=== PATIENT | male | born 1970 | race Caucasian/White ===

== ENCOUNTER 2021-09-07 15:35 | Inpatient (IN) | payer SELFPAY ==
[~2021-09-07] VITALS: Ht 180.3 cm; Wt 106.2 kg
[2021-09-07 16:36] LABS: COLLECTION METHOD CLEAN CATCH
[2021-09-07 16:38] LABS: BASO # 0.1 K/mm3 (0.0-0.2); BASO % 0.5 % (0.0-2.0); EOS % 0.3 % (0.0-4.0); GRAN # 7.5 K/mm3 (1.4-6.5); GRAN % 75.7 % (42.2-75.2); HEMATOCRIT 35.8 % (42.0-52.0); HEMOGLOBIN 11.8 g/dl (13.5-18.0); INR 1.6 (0.8-3.0); LYMPH % 9.6 % (20.0-51.0); MEAN CELL VOLUME 107 fl (80.0-100.0); MEAN CORPUSCULAR HEMOGLOBIN 35 pg (27-31); MEAN CORPUSCULAR HGB CONC 33 g/dl (33.0-37.0); MEAN PLATELET VOLUME 11.1 fl (7.4-10.4); MONO # 1.3 K/mm3 (0.1-0.6); MONO % 13.4 % (1.7-9.3); PLATELET COUNT 181 K/mm3 (130-400); RED BLOOD COUNT 3.36 M/mm3 (4.20-5.60); REDCELL DISTRIBUTION WIDTH-CV 16.3 % (11.5-14.5)
[2021-09-07 16:43] LABS: MUCOUS Present (NOT PRESENT); PH 5 (5-8); SQUAMOUS EPITHELIAL 0-2 /hpf (0-10); URINE APPEARANCE Hazy (CLEAR/HAZY); URINE BACTERIA None Seen /hpf (NONE SEEN); URINE BILIRUBIN Positive (NEGATIVE); URINE BLOOD Negative (NEGATIVE); URINE COLOR Amber (YELLOW); URINE GLUCOSE Negative (NEGATIVE); URINE KETONE Trace (NEGATIVE); URINE LEUKOCYTE ESTERASE Negative (NEGATIVE); URINE NITRATE Negative (NEGATIVE); URINE PROTEIN(semi-quant) 1+ (NEGATIVE); URINE UROBILINOGEN >=4.0 (NEGATIVE)
[2021-09-07 16:52] LABS: ALANINE AMINOTRANSFERASE 31 U/L (0-55); ALBUMIN 2.6 gm/dL (3.5-5.0); ALKALINE PHOSPHATASE 204 U/L (40-150); AST,SGOT 110 U/L (5-34); BILIRUBIN,TOTAL 5.7 mg/dL (0.2-1.2); BLOOD UREA NITROGEN 7 mg/dL (8-26); CALCIUM 8.4 mg/dL (8.4-10.2); CARBON DIOXIDE 19 mmol/L (22-29); CHLORIDE 103 mmol/L (98-107); CREATININE, serum 0.69 mg/dL (0.72-1.25); GLUCOSE 122 mg/dL (70-99); POTASSIUM 3.9 mmol/L (3.5-4.5); SODIUM 136 mmol/L (136-145); TOTAL PROTEIN 7.6 gm/dL (6.2-8.1)
[2021-09-07 16:54] LABS: ALCOHOL(ethanol),MEDICAL < 10 mg/dL (0-10); ANION GAP 14 mmol/L (7-16)
[2021-09-07 21:41] VITALS: BP 136/84; PULSE 99; TEMP 97.7
[2021-09-08] VITALS (13 sets, daily range): BP systolic 123–154; BP diastolic 67–91; PULSE 28–104; TEMP 97.8–99.4
[2021-09-08 00:13] LABS: LIPASE 15 U/L (8-78)
[2021-09-08 06:12] LABS: BASO # 0.1 K/mm3 (0.0-0.2); BASO % 0.7 % (0.0-2.0); EOS # 0.1 K/mm3 (0.0-0.7); EOS % 0.8 % (0.0-4.0); GRAN # 5.8 K/mm3 (1.4-6.5); GRAN % 75.7 % (42.2-75.2); HEMOGLOBIN 10.5 g/dl (13.5-18.0); LYMPH # 0.7 K/mm3 (1.2-3.4); LYMPH % 9.1 % (20.0-51.0); MEAN CELL VOLUME 109 fl (80.0-100.0); MEAN CORPUSCULAR HEMOGLOBIN 36 pg (27-31); MEAN CORPUSCULAR HGB CONC 33 g/dl (33.0-37.0); MEAN PLATELET VOLUME 11.1 fl (7.4-10.4); MONO % 13.3 % (1.7-9.3); PLATELET COUNT 148 K/mm3 (130-400); REDCELL DISTRIBUTION WIDTH-CV 16.2 % (11.5-14.5)
[2021-09-08 06:15] LABS: HEMATOCRIT 31.7 % (42.0-52.0)
[2021-09-08 06:30] LABS: INR 1.7 (0.8-3.0); PROTHROMBIN TIME 18.9 SECONDS (9.7-12.8)
[2021-09-08 06:31] LABS: ALBUMIN 2.3 gm/dL (3.5-5.0); BILIRUBIN,TOTAL 4.5 mg/dL (0.2-1.2); CALCIUM 7.9 mg/dL (8.4-10.2); CREATININE, serum 0.6 mg/dL (0.72-1.25); MAGNESIUM 1.9 mg/dL (1.6-2.6); POTASSIUM 3.9 mmol/L (3.5-4.5); TOTAL PROTEIN 6.7 gm/dL (6.2-8.1)
[2021-09-08 10:37] LABS: PERITONEAL -POLYMORPHONUCLEAR 7.1 % (0-25)
--- NOTE | 2021-09-08 10:42 | NUR ---
insulation worker met with patient to discuss discharge plan. Patient is currently out of the room for a procedure. SW met with patient's Madyson ([phone]). Patient is independent with his ADL's and does not utilize any DME to assist with mobility but does have access to both a cane and a walker Patient has no home oxygen needs. Madyson states that the patient needs a CPAP machine but they cannot afford one. Madyson states that the patient does not have a PCP "because we make to much for the free clinic". Patient utilizes [facility] for medications. She is not sure if the patient has a DPOA-HC established in writing. Education provided. Madyson states that she would likethe patient to get on disability. She states that he is unable to work due to suffering from "social anxiety disorder". Directed her to reach out to the [facility] to assist with this. Informed her that i would reach out to our financial counselor to assit in filling out the FAA and to see if the patient would qualify for [facility]. Daniel contacted and states that she will meet with them today. Discharge plan: Home with spouse
--- NOTE | 2021-09-08 13:39 | NUR ---
Initial visit; Patient sleeping. Presentation Designer spoke with his letting her know of the availability of spiritual care should patient decide later that he would like to have prayer.
[2021-09-09] VITALS (10 sets, daily range): BP systolic 124–138; BP diastolic 76–85; PULSE 93–103; TEMP 98–99.2
--- NOTE | 2021-09-09 00:13 | NUR ---
PT IS VERY SLEEPY, WILL WAKE BRIEFLY BUT GOES BACK TO SLEEP. SCORE 3-4 CIWA- NO ATIVAN GIVEN. AT BEDSIDE AND APPOVED TO STAY OVERNIGHT TO HELP W PT SAFTY. BED ALARM. POC DISCUSSED W .
[2021-09-09 05:17] LABS: BASO # 0.1 K/mm3 (0.0-0.2); BASO % 0.9 % (0.0-2.0); EOS # 0.1 K/mm3 (0.0-0.7); EOS % 0.9 % (0.0-4.0); GRAN # 4.7 K/mm3 (1.4-6.5); HEMOGLOBIN 11.2 g/dl (13.5-18.0); LYMPH # 1.2 K/mm3 (1.2-3.4); LYMPH % 17.4 % (20.0-51.0); MEAN CELL VOLUME 107 fl (80.0-100.0); MEAN CORPUSCULAR HEMOGLOBIN 35 pg (27-31); MEAN CORPUSCULAR HGB CONC 33 g/dl (33.0-37.0); MEAN PLATELET VOLUME 10.7 fl (7.4-10.4); MONO # 0.9 K/mm3 (0.1-0.6); MONO % 13.4 % (1.7-9.3); PLATELET COUNT 179 K/mm3 (130-400); REDCELL DISTRIBUTION WIDTH-CV 16.4 % (11.5-14.5)
[2021-09-09 05:26] LABS: HEMATOCRIT 34.3 % (42.0-52.0)
[2021-09-09 05:32] LABS: INR 1.6 (0.8-3.0); PROTHROMBIN TIME 17.7 SECONDS (9.7-12.8)
[2021-09-09 05:38] LABS: ALBUMIN 2.8 gm/dL (3.5-5.0); BILIRUBIN,TOTAL 4.4 mg/dL (0.2-1.2); CALCIUM 8.4 mg/dL (8.4-10.2); CREATININE, serum 0.69 mg/dL (0.72-1.25); POTASSIUM 3.5 mmol/L (3.5-4.5)
--- NOTE | 2021-09-09 12:11 | NUR ---
PATIENT AND FAMILY REFUSING FOLATE AND B12 LAB DRAWS DUE TO COST, PROVIDER NOTIFIED. AGREEABLE TO AMMONIA LEVEL BEING DRAWN.
--- NOTE | 2021-09-09 15:07 | NUR ---
Collaborated with the PA who does not feel as if the patient will need long-term antibiotics. SW also notified of the patient and his spouse being interested in where to either rent/purchase a shower chair. Financial counselor arrives to the floor to meet with the patient and his spouse.
--- NOTE | 2021-09-09 16:42 | NUR ---
This RN received report from POORNIMA Ferro, and will be taking over care of the patient.
[2021-09-10] VITALS (8 sets, daily range): BP systolic 122–135; BP diastolic 74–79; PULSE 78–97; TEMP 98.1–98.7
[2021-09-10 04:34] LABS: CERULOPLASMIN 28 mg/dL (20-60)
--- NOTE | 2021-09-10 06:00 | NUR ---
ASSESSMENT COMPLETE FOR THIS SHIFT. PT RESTING IN BED WITH THE TV ON. PT COMPLAINED OF LOWER RIB PAIN WHEN HE COUGHED. PT GIVEN MORPHINE FOR PAIN. PAIN MEDICATION WAS EFFECTIVE. PT DENIED PALPITATIONS, N,V,D, SOB OR DIZZINESS. PT SCORED A 2 OR LESS ON HIS CIWA, WITH NO NEED FOR ATIVAN THIS SHIFT. PT EXPRESSED NO OTHER NEEDS AT THIS TIME. CALL LIGHT WITHIN REACH.
--- NOTE | 2021-09-10 09:08 | NUR ---
Patient laying in bed w/ at the bedside. This RN assisted the patient w/ getting repositioned in bed. Patient denies any concerns at this time and appears to be doing well. Abdomen very round and firm. SCDs in place for VTE prophylaxis.
[2021-09-10 12:29] LABS: ANA SCREEN with REFLEX Negative (Negative)
[2021-09-10] MEDS ORDERED: CIPRO 500MG TA500 MG PO (16:16)
[2021-09-10] MEDS ORDERED: ALDACTONE 100M100 MG PO (16:17)
[2021-09-10] MEDS ORDERED: MULTI VITAMINS1 TAB PO (16:20)
[2021-09-10] MEDS ORDERED: LASIX 40MG TABL40 MG PO (16:20)
[2021-09-10] MEDS ORDERED: THIAMINE 1100 MG/TAB PO (16:20)
[2021-09-10] MEDS ORDERED: FOLIC ACID 11 MG/TA1 PO (16:20)
--- NOTE | 2021-09-10 16:49 | NUR ---
piece worker contacted by physician that they are planning on discharging this patient tonight vs. tomorrow. The patient will be going home with 3 new medications that this sw provided a voucher for: Cipro 500mg $11.92, Spironolactone 100mg $16.86, Lasix 40mg $12.00. Perscription voucher faxed to [facility] along with the patients information. Met with patient and patients Madyson in room to provide voucher and [place] [facility] for future needs. Informed Madyson of the above and that the pharmacy closes at 6pm tonight.
--- NOTE | 2021-09-10 18:19 | NUR ---
Discharge orders in on this patient; All information and education discussed. IV discontinued by this RN. Patient requested an hour to get situated before leaving. Report to be given to operation shift supervisor.
--- NOTE | 2021-09-10 19:55 | NUR ---
DISCHARGE PAPERWORK AND INSTRUCTIONS REVIEWED WITH PT AND FAMILY BY DAYSHIFT RN. ALL QUESTIONS AND CONCERNS ANSWERED AT THAT TIME PER SHIFT CHANGE REPORT. PT WHEELED OUT OF THE FACILITY, VIA WHEELCHAIR BY MYSELF.
[2021-09-12 12:20] LABS: ANTISMOOTH MUSCLE ANTIBODY Negative (Negative)
== END 2021-09-10 19:55 | disposition home or self-care (01) | DRG 872 ==
LOC: COL.ER 15:35 → MEDICAL 19:45
PROVIDERS: Internal Medicine Gastroenterology; Physician Assistant; Student in an Organized Health Care Education/Training Program; ADMIT Student in an Organized Health Care Education/Training Program
PROC: 0W9G3ZZ Drainage of Peritoneal Cavity, Percutaneous Approach (ICD-10-PCS; principal; 2021-09-08)
DX: A41.51 Sepsis due to Escherichia coli [E. coli] (principal); K76.6 Portal hypertension; K70.31 Alcoholic cirrhosis of liver with ascites; F41.8 Other specified anxiety disorders; D64.9 Anemia, unspecified; F10.10 Alcohol abuse, uncomplicated
CPT/HCPCS: 99223-AI; 99233-AI; C9113; J0696; J1940; J2060; J2270; J7030; P9047; Q9967